=== PATIENT | male | born 1990 | race Caucasian/White ===

== ENCOUNTER 2016-04-14 21:04 | Emergency (ER) | payer OTHER ==
[~2016-04-14] VITALS: Ht 170.2 cm; Wt 79.4 kg
[2016-04-14 21:20] VITALS: BP 138/84; PULSE 113; RESP 20; TEMP 98.9; O2SAT 99
[2016-04-14] MEDS ORDERED: AMOXICILLIN/CLAVULANATE POTASSIUM 875 MG TABLET PO ONE (22:00)
[2016-04-14 23:08] VITALS: BP 135/88; PULSE 105; RESP 18; TEMP 98.7; O2SAT 99
== END 2016-04-14 23:08 | disposition home or self-care (01) ==
LOC: SED 21:04
DX: J01.90 Acute sinusitis, unspecified (principal); H66.91 Otitis media, unspecified, right ear; H10.9 Unspecified conjunctivitis; R05 Cough
CPT/HCPCS: 71010; 99283